=== PATIENT | female | born 1990 | race Caucasian/White ===

== ENCOUNTER 2016-12-20 17:47 | Emergency (ER) | payer OTHER ==
--- NOTE | 2016-12-20 18:32 | EDPHY ---
H & P Stated Complaint: left abd pain worse with inspiration. Time Seen by Provider: 12/20/16 18:02 HPI/ROS: CHIEF COMPLAINT: Abdominal pain HISTORY OF PRESENT ILLNESS: This is a 26-year-old female in general good health who reports a 20 hour history of left upper quadrant pain. She describes it is a stinging pain. She rates it is a 4 on a scale of 4-10. The pain is pleuritic. No family history of venous thromboembolism. No personal risk factors for VTE. She denies fever, cough, recent trauma. She does not feel short of breath but states that she has been breathing shallowly. Her appetite has been poor today. She denies nausea, vomiting, diarrhea, constipation, or urinary symptoms. No dyspepsia or heartburn. REVIEW OF SYSTEMS: A ten point review of systems was performed and is negative with the exception of the items mentioned in the HPI. She has an IUD in place. She finished her last menstrual period 5 days ago. Source: Patient Exam Limitations: No limitations - Personal History LMP (Females 10-55): 1-7 Days Ago Current Tetanus Diphtheria and Acellular Pertussis (TDAP): Yes - Medical/Surgical History Other PMH: tonsilectomy - Family History Significant Family History: No pertinent family hx - Social History Smoking Status: Never smoked Drug Use: None Additional Social History: She works as an administrative aide. - Physical Exam Exam: General Appearance: Alert. Vital signs reviewed. Heart rate 110 at triage. Eyes: Pupils equal and round, no conjunctival injection, no discharge. Anicteric. ENT, Mouth: Mucous membranes are moist, no oropharyngeal erythema or edema. Neck: No lymphadenopathy, supple. Respiratory: Lungs are clear to auscultation; no wheezes, rales, or rhonchi. Thorax: Nontender. No crepitus. Cardiovascular: Regular rate and rhythm, not tachycardic at the time of my exam ; no murmur, rub, or gallop. Gastrointestinal: Abdomen is soft and mildly to moderately tender in the left upper quadrant, no guarding, no masses or organomegaly, bowel sounds normal. Skin: Warm and dry, no rashes on exposed skin, normal color. Back: Nontender to palpation over the thoracolumbar spine. No CVAT. Extremities: No lower extremity edema, no calf tenderness or swelling. Neurological: Alert and oriented. Moving all four extremities easily and equally. Psychiatric: Normal affect. Constitutional: Initial Vital Signs Temperature (C) 37.1 C 12/20/16 17:55 Heart Rate 110 H 12/20/16 17:55 Respiratory Rate 16 12/20/16 17:55 Blood Pressure 120/85 H 12/20/16 17:55 O2 Sat (%) 99 12/20/16 17:55 O2 Delivery Mode Room Air Allergies/Adverse Reactions: nickel Allergy (Verified 12/20/16 18:29) Home Medications: Medication Instructions Recorded Clindamycin 1% 12/20/16 Retin-A 12/20/16 Medical Decision Making ED Course/Re-evaluation: Healthy 26-year-old with almost 24 hours of left upper quadrant pleuritic abdominal pain. Will rule out PE with D-dimer. Her Wells score is zero. Will check labs to assess for pancreatitis, cholecystitis. Chest x-ray to assess for pneumothorax or infiltrate. Her pain is upper abdominal I do not suspect ovarian pathology, ectopic or pain related to early . 7:15 p.m.: Patient re-evaluated. Labs reviewed and normal. Nothing to suggest pancreatitis or cholecystitis. Chest x-ray also normal. On repeat exam she still has some mild tenderness in the left upper quadrant, no guarding. We discussed the possibility of this being gastritis. She will try Tagamet. She will also try some Tylenol for pain relief. She does not desire any antacids or pain medication in the emergency department. We reviewed the danger signs that should prompt her to be re-evaluated immediately. Differential Diagnosis: Abdominal pain including but not limited to appendicitis (which I do not suspect in this setting), cholecystitis, gastritis and ureterolithiasis, urinary tract infection (she has no urinary signs or symptoms). - Data Points Laboratory Results: Laboratory Results 12/20/16 18:35 12/20/16 18:35 12/20/16 12/20/16 12/20/16 18:35 18:35 18:35 WBC RBC Hgb Hct MCV MCH MCHC RDW Plt Count MPV Neut % (Auto) Lymph % (Auto) [place] % (Auto) Eos % (Auto) Baso % (Auto) Nucleat RBC Rel Count Absolute Neuts (auto) Absolute Lymphs (auto) Absolute Monos (auto) Absolute Eos (auto) Absolute Basos (auto) Absolute Nucleated RBC Immature Gran % Immature Gran # D-Dimer < 0.27 ug/mLFEU ug/mLFEU (0.00-0.50) Sodium 141 mEq/L mEq/L (134-144) Potassium 4.0 mEq/L mEq/L (3.5-5.2) Chloride 103 mEq/L mEq/L (97-110) Carbon Dioxide 23 mEq/l mEq/l (22-31) Anion Gap 15 mEq/L mEq/L (8-16) BUN 7 mg/dL mg/dL (7-23) Creatinine 0.6 mg/dL mg/dL (0.6-1.0) Estimated GFR > 60 Glucose 115 mg/dL H mg/dL (70-100) Calcium 9.3 mg/dL mg/dL (8.5-10.4) Total Bilirubin 0.6 mg/dL mg/dL (0.1-1.4) Conjugated Bilirubin 0.3 mg/dL mg/dL (0.0-0.5) Unconjugated Bilirubin 0.3 mg/dL mg/dL (0.0-1.1) AST 24 IU/L IU/L (14-46) ALT 24 IU/L IU/L (9-52) Alkaline Phosphatase 50 IU/L IU/L (38-126) Total Protein 7.3 g/dL g/dL (6.3-8.2) Albumin 4.1 g/dL g/dL (3.5-5.0) Lipase 73.0 IU/L IU/L (23-300) Beta HCG, Qual NEGATIVE 12/20/16 18:35 WBC 6.33 10^3/uL 10^3/uL (3.80-9.50) RBC 4.89 10^6/uL 10^6/uL (4.18-5.33) Hgb 13.6 g/dL g/dL (12.6-16.3) Hct 41.3 % % (38.0-47.0) MCV 84.5 fL fL (81.5-99.8) MCH 27.8 pg L pg (27.9-34.1) MCHC 32.9 g/dL g/dL (32.4-36.7) RDW 13.2 % % (11.5-15.2) Plt Count 267 10^3/uL 10^3/uL (150-400) MPV 11.9 fL H fL (8.7-11.7) Neut % (Auto) 68.3 % % (39.3-74.2) Lymph % (Auto) 22.9 % % (15.0-45.0) [place] % (Auto) 7.3 % % (4.5-13.0) Eos % (Auto) 0.5 % L % (0.6-7.6) Baso % (Auto) 0.5 % % (0.3-1.7) Nucleat RBC Rel Count 0.0 % % (0.0-0.2) Absolute Neuts (auto) 4.33 10^3/uL 10^3/uL (1.70-6.50) Absolute Lymphs (auto) 1.45 10^3/uL 10^3/uL (1.00-3.00) Absolute Monos (auto) 0.46 10^3/uL 10^3/uL (0.30-0.80) Absolute Eos (auto) 0.03 10^3/uL 10^3/uL (0.03-0.40) Absolute Basos (auto) 0.03 10^3/uL 10^3/uL (0.02-0.10) Absolute Nucleated RBC 0.00 10^3/uL 10^3/uL (0-0.01) Immature Gran % 0.5 % % (0.0-1.1) Immature Gran # 0.03 10^3/uL 10^3/uL (0.00-0.10) D-Dimer Sodium Potassium Chloride Carbon Dioxide Anion Gap BUN Creatinine Estimated GFR Glucose Calcium Total Bilirubin Conjugated Bilirubin Unconjugated Bilirubin AST ALT Alkaline Phosphatase Total Protein Albumin Lipase Beta HCG, Qual Departure - Departure Disposition: Home, Routine, Self-Care Clinical Impression: Abdominal pain Qualifiers: Abdominal location: left upper quadrant Qualified Code(s): R10.12 - Left upper quadrant pain Condition: Good Instructions: Acute Abdominal Pain (ED), Gastritis (ED) Additional Instructions: I am giving you some information about gastritis although we do not know for certain what is causing her pain. Try taking Tagamet, which you can buy over-the -counter. It is fine to take Tylenol for pain. I recommend 650 mg every 4 hours as needed for pain. As we discussed, you should probably avoid ibuprofen or other anti-inflammatory medications. If you are worse in any way--fever, vomiting, severe pain that is unremitting, difficulty breathing--you should be seen again immediately. Please follow up with your primary care doctor next week if you're not feeling better. Referrals: Jenifer Guevara MD [Medical Doctor] - As per Instructions
[2016-12-20 18:47] LABS: % IMMATURE GRANULYOCYTES 0.5 % (0.0-1.1); ABSOLUTE IMMATURE GRANULOCYTES 0.03 10^3/uL (0.00-0.10); ADD DIFF? NO; ADD MORPH? NO; ADD SCAN? NO; ATYPICAL LYMPHOCYTE FLAG 0 (0-99); FRAGMENT RBC FLAG 0 (0-99); HEMATOCRIT 41.3 % (38.0-47.0); HEMOGLOBIN 13.6 g/dL (12.6-16.3); LEFT SHIFT FLG 0 (0-99); LIPEMIA HEMOLYSIS FLAG 80 (0-99); MEAN CELL HEMOGLOBIN 27.8 pg (27.9-34.1); MEAN CELL HEMOGLOBIN CONCENTR. 32.9 g/dL (32.4-36.7); MEAN CELL VOLUME 84.5 fL (81.5-99.8); MEAN PLATELET VOLUME 11.9 fL (8.7-11.7); PLATELET CLUMPS FLAG 0 (0-99); PLATELET COUNT 267 10^3/uL (150-400); RED BLOOD CELL COUNT 4.89 10^6/uL (4.18-5.33); RED CELL DISTRIBUTION WIDTH 13.2 % (11.5-15.2)
[2016-12-20 19:05] LABS: ALANINE AMINOTRANSFERASE 24 IU/L (9-52); ALBUMIN 4.1 g/dL (3.5-5.0); ALKALINE PHOSPHATASE 50 IU/L (38-126); ANION GAP 15 mEq/L (8-16); ASPARTATE AMINOTRANSFERASE 24 IU/L (14-46); BILIRUBIN,TOTAL 0.6 mg/dL (0.1-1.4); BILIRUBIN-CONJUGATED 0.3 mg/dL (0.0-0.5); BILIRUBIN-UNCONJUGATED 0.3 mg/dL (0.0-1.1); CALCIUM 9.3 mg/dL (8.5-10.4); CARBON DIOXIDE 23 mEq/l (22-31); CHLORIDE 103 mEq/L (97-110); CREATININE 0.6 mg/dL (0.6-1.0); GLOMERULAR FILTRATION RATE > 60; GLUCOSE 115 mg/dL (70-100); SODIUM 141 mEq/L (134-144); TOTAL PROTEIN 7.3 g/dL (6.3-8.2)
[2016-12-20 19:42] VITALS: BP 124/78; PULSE 98; RESP 14; TEMP 98.4; O2SAT 98
== END 2016-12-20 19:40 | disposition home or self-care (01) ==
LOC: CED 17:47
DX: R10.12 Left upper quadrant pain (principal)
CPT/HCPCS: 71020-PO; 80048-PO; 80076-PO; 83690-PO; 84703-PO; 85025-PO; 85378-PO